=== PATIENT | female | born 1990 | race Caucasian/White ===

== ENCOUNTER 2018-04-25 18:20 | Emergency (ER) | payer OTHER ==
[2018-04-25 18:33] VITALS: RESP 18
[2018-04-25] MEDS ORDERED: KETOROLAC 30 MG/ML 1 ML VIAL IVP STA (20:29)
[2018-04-25] MEDS ORDERED: SODIUM CHLORIDE 0.9% 500 ML 500 ML IV STA (20:29)
[2018-04-25] MEDS ORDERED: diphenhydrAMINE 50 MG/ML 1 ML VIAL IVP STA (20:29)
[2018-04-25] MEDS ORDERED: METOCLOPRAMIDE 5 MG/ML 2 ML VIAL IVP STA (20:29)
[2018-04-25] MEDS ORDERED: SODIUM CHLORIDE 0.9% 1,000 ML IV STA (20:29)
[2018-04-25] MEDS ORDERED: DEXAMETHASONE SOD PHOSPHATE 10 MG/ML 1 ML VIAL IV STA (20:31)
--- NOTE | 2018-04-25 20:55 | ED ---
Headache HPI - General Mode of arrival: ambulatory Limitations: no limitations <Dylon Franz - Last Filed: 04/25/18 20:53> <Leonor Quintanilla - Last Filed: 04/25/18 22:32> - General Chief Complaint: Headache Stated Complaint: blurred vision, aneurysm hx Time Seen by Provider: 04/25/18 20:15 - History of Present Illness Initial Comments: This 27-year-old white female presents with mother with a complaint of a headache. She states that is behind her left eye. She states that he came on several hours prior to arrival. It is associated with some neck pain as well as some photophobia and blurry vision. She has had some nausea but no vomiting. She denies any fevers or chills. She states that she has had recurrent migraine headaches ever since age 9 years old and this is similar. She also relates that she's had previous intracranial aneurysms with rupture, clipping, and stenting. She states that she had aneurysmal clipping and stenting approximately 2 years ago. Her neurologist is out of the [facility]. No other complaints or modifying factors. 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 (Dylon Franz) - Related Data Allergies Allergy/AdvReac Type Severity Reaction Status Date / Time No Known Allergies Allergy Verified 04/25/18 21:17 Review of Systems ROS Other: All systems not noted in ROS Statement are negative. <Dylon Franz - Last Filed: 04/25/18 20:53> ROS Other: All systems not noted in ROS Statement are negative. <Leonor Quintanilla - Last Filed: 04/25/18 22:32> ROS Statement: Those systems with pertinent positive or pertinent negative responses have been documented in the HPI. Past Medical History Additional Past Medical History / Comment(s): ruptured brain aneurysm in 10/28, multiple personality disorder History of Any Multi-Drug Resistant Organisms: None Reported Additional Past Surgical History / Comment(s): coil and stent placement for brain aneurysm Past Psychological History: No Psychological Hx Reported, Anxiety, Bipolar, Depression, PTSD Smoking Status: Current every day smoker Past Alcohol Use History: None Reported Past Drug Use History: Methamphetamine <Dylon Franz - Last Filed: 04/25/18 20:53> General Exam Limitations: no limitations <Dylon Franz - Last Filed: 04/25/18 20:53> <Leonor Quintanilla - Last Filed: 04/25/18 22:32> - General Exam Comments Initial Comments: GENERAL: The patient is well nourished and well hydrated. VITAL SIGNS: Heart rate, blood pressure, respiratory rate reviewed as recorded in nurse's notes. EYES: Pupils are round and reactive. Extraocular movements are intact. No conjunctival / lid redness or swelling. ENT: No external evidence of injury, swelling, or ecchymosis. Airway is patent. Throat is clear. NECK: Nontender. No swelling or evidence of injury. No subcutaneous emphysema. Trachea is midline. No thyroid mass. HEART: Regular rate and rhythm. Good peripheral pulses. LUNGS/CHEST: Breath sounds clear and equal bilaterally. No rales, rhonchi, or wheezes. No ecchymosis, subcutaneous emphysema, or tenderness. ABDOMEN: Abdomen soft without tenderness. No palpable masses or organomegaly. No peritoneal signs. No abdominal wall swelling or ecchymosis. EXTREMITIES: No extremity tenderness. Normal muscle tone and function. No thoracolumbar tenderness. NEUROLOGIC: Sensation is grossly intact. Cranial nerve exam reveals face is symmetrical, tongue is midline, speech is clear. SKIN: No abrasions or ecchymosis is noted. No induration or masses noted. PSYCHIATRIC: Alert and oriented. Appropriate behavior and judgment. (Dylon Franz) Course <Dylon Franz - Last Filed: 04/25/18 20:53> <Leonor Quintanilla - Last Filed: 04/25/18 22:32> Vital Signs 04/25/18 04/25/18 18:27 20:46 Temperature 98.3 F Pulse Rate 83 81 Respiratory 18 18 Rate Blood Pressure 124/84 117/66 O2 Sat by Pulse 100 100 Oximetry - Reevaluation(s) Reevaluation #1: She was reevaluated and is resting comfortably in bed reports improvement in her headache since medications. At the time of reevaluation CT CTA results were pending. 04/25/18 22:00 (Leonor Quintanilla) Medical Decision Making <Dylon Franz - Last Filed: 04/25/18 20:53> <Leonor Quintanilla - Last Filed: 04/25/18 22:32> - Medical Decision Making The patient was seen and examined. An IV is established and she is hydrated. She does receive some Benadryl, Decadron, Toradol, and Reglan. Further care will be passed off to oncoming physician. (Dylon Franz) Patient care was signed out to me by Dr. Franz, 27 yo female with history of cerebral artery aneurysm s/p clip presenting with headache. patient was treated with IV medications and CT/CTA were pending at time of sign out. I re-evaluated the patient, she reported improvement in her headache after medications. CT/CTA results were discussed with the patient and family at bedside. Patient stable for discharge home. (Leonor Quintanilla) Disposition <Dylon Franz - Last Filed: 04/25/18 20:53> Is patient prescribed a controlled substance at d/c from ED?: No <Leonor Quintanilla - Last Filed: 04/25/18 22:32> Clinical Impression: Migraine Instructions (If sedation given, give patient instructions): Acute Headache (ED ) Referrals: None,Stated [Primary Care Provider] - 1-2 days
--- NOTE | 2018-04-25 21:35 | CT ---
EXAMINATION TYPE: CT brain wo con DATE OF EXAM: 04/25/2018 COMPARISON: None. HISTORY: headache, blurred vision, hx of aneurysm. CT DLP: 1173.9 mGycm. Automated Exposure Control for Dose Reduction was Utilized. TECHNIQUE: CT scan of the head is performed without contrast. FINDINGS: There is no acute intracranial hemorrhage, mass effect, or midline shift identified. The ventricles and sulci are within normal limits in size. There is aneurysm coil with streak artifact l ikely at left MCA origin near axial image 18. The globes are intact and the visualized sinuses are cl ear. Patchy soft tissue density left external auditory canal favor cerumen. IMPRESSION: No acute intracranial hemorrhage, mass effect, or midline shift is seen.
--- NOTE | 2018-04-25 22:00 | CT ---
EXAMINATION TYPE: CT angio head neck DATE OF EXAM: 04/25/2018 HISTORY: headache, blurred vision, hx of aneurysm. COMPARISON: NONE CT DLP: 474.5 mGycm. Automated Exposure Control for Dose Reduction was Utilized. TECHNIQUE: CTA scan of the head and neck are performed with IV Contrast, patient injected with 65cc mL of Isovue 370, axial images are obtained, coronal and sagittal reformatted images are reviewed. Th ree-D reconstructed images are created on an independent workstation and reviewed. FINDINGS: Carotid/Vascular Structures: There is normal three-vessel origin from the aortic arch without signifi cant plaque or stenosis. Visualized portion of both subclavian arteries show no significant plaque or stenosis. Right common carotid artery shows normal origin from right brachiocephalic artery. There i s no significant plaque or stenosis in right common or internal carotid artery including at level of right carotid bulb. There is patent right external carotid artery without significant plaque or steno sis. There is no significant plaque or stenosis of left common or internal carotid artery including a hernández tid bulb. There is patent external carotid artery without significant plaque or stenosis. There is hypoplastic or occluded nondominant distal left vertebral artery. Right vertebral artery is dominant and patent. There is small caliber vertebrobasilar system, there are hypoplastic posterior c ommunicating arteries seen bilaterally. 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 Correlation with old outside study would be bene ficial. There is aneurysm clip in the distal left middle cerebral artery causing streak artifact limiting mindi luation at this level. No new aneurysm is seen. There is patent anterior communicating artery identif ied. No linear hypodensity to suggest dissection is present. Other: Reversal of normal cervical curvature is present. IMPRESSION: 1. Aneurysm clip distal left MCA without new aneurysm identified at level of alutiiq of [place]
[2018-04-25 22:45] VITALS: BP 109/71; PULSE 90; TEMP 98
== END 2018-04-25 22:58 ==
LOC: EC 18:20
DX: G43.909 Migraine, unspecified, not intractable, without status migrainosus (principal); M54.2 Cervicalgia; F17.200 Nicotine dependence, unspecified, uncomplicated; Z86.79 Personal history of other diseases of the circulatory system; Z96.89 Presence of other specified functional implants
CPT/HCPCS: 99283; 96374; 96375 ×3; 96361 ×2; 70496; 70450; 70498; J1200; J1100; J2765; J1885; Q9967